=== PATIENT | male | born 1955 | race Two or more races ===

== ENCOUNTER 2019-10-09 22:31 | Emergency (ER) | payer OTHER ==
[~2019-10-09] VITALS: Ht 175.3 cm; Wt 76.7 kg
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
[2019-10-09] MEDS ORDERED: TDAP [DIPH/PERTUSSIS/TET] 0.5 ML VIAL IM ONE ×2 (23:00→23:24)
[2019-10-09 23:04] LABS: BASOPHILS % (AUTO) 0.5 % (0.0-2.0); HEMATOCRIT 42 % (39-51); HEMOGLOBIN 13.5 g/dL (13.5-17.5); LYMPHOCYTES # (AUTO) 3.5 /CMM (0.8-4.8); MEAN CORPUSCULAR HGB CONC 32 g/dl (31.0-36.0); MEAN CORPUSCULAR VOLUME 78 fL (80-96); MONOCYTES # (AUTO) 0.8 /CMM (0.1-1.30); MONOCYTES % (AUTO) 8.6 % (2.0-12.0); NEUTROPHILS # (AUTO) 4.5 /CMM (1.8-8.9); NEUTROPHILS % (AUTO) 47.9 % (43.0-81.0); PLATELET COUNT (AUTO) 394 /CMM (150-450); RED BLOOD CELL COUNT(AUTO) 5.36 MIL/uL (4.5-6.0); WHITE BLOOD COUNT (AUTO) 9.4 K/uL (4.3-11.0)
--- NOTE | 2019-10-09 23:15 | NUR ---
PT RETURNED FROM CT.
[2019-10-09 23:16] LABS: ALANINE AMINOTRANSFERASE 39 U/L (12-78); ALBUMIN 3.8 g/dL (3.4-5.0); ALCOHOL, BLOOD < 3 mg/dL (0-0); ALKALINE PHOSPHATASE 70 U/L (46-116); ASPARTATE AMINOTRANSFERASE 19 U/L (15-37); BILIRUBIN,DIRECT 0.1 mg/dL (0.0-0.2); BILIRUBIN,TOTAL 0.3 mg/dL (0.2-1.0); CALCIUM, SERUM 9.3 mg/dL (8.5-10.1); CARBON DIOXIDE 30 mmol/L (21-32); CHLORIDE 103 mmol/L (98-107); CREATININE 0.9 mg/dL (0.6-1.3); GLUCOSE 167 mg/dL (74-106); POTASSIUM 3.5 mmol/L (3.5-5.1); SODIUM SERUM 142 mmol/L (136-145); TOTAL PROTEIN, SERUM 7.6 g/dL (6.4-8.2); UREA NITROGEN, BLOOD 16 mg/dL (7-18)
[2019-10-09 23:25] LABS: SERUM AMMONIA 0 umol/L (11-32)
--- NOTE | 2019-10-09 23:50 | NUR ---
PT LEFT FOR CTA VIA GURNEY
[2019-10-09] MEDS ORDERED: LEVO25TA7 PO (23:57)
[2019-10-09] MEDS ORDERED: LOSA100T31 PO (23:57)
[2019-10-09] MEDS ORDERED: EMPA25TA PO (23:57)
[2019-10-09] MEDS ORDERED: ATOR20TA PO (23:57)
[2019-10-09] MEDS ORDERED: ALOG25TA2 PO (23:57)
[2019-10-09] MEDS ORDERED: METF-442 PO (23:57)
[2019-10-09] MEDS ORDERED: GLIM4TAB37 PO (23:57)
[2019-10-10] MEDS ORDERED: ONDANSETRON HCL/PF 4 MG/2 ML VIAL ONE (00:06)
[2019-10-10] MEDS ORDERED: FENTANYL PF 100MCG/2ML AMPUL ONE (00:06)
--- NOTE | 2019-10-10 00:11 | NUR ---
PT RETURNED FROM CTA AND VOMITTED S/P CTA. PT RETURNED TO ER 7. PT WAS PLACED ON THE MONITOR AND CONTINUOUS PULSE OX. DR PINEDO NOTIFIED RE: EMESIS. NEW ORDERS GIVEN.
--- NOTE | 2019-10-10 00:15 | NUR ---
PT REC'D ALL MEDICATION ORDERED.
[2019-10-10] MEDS ORDERED: FENTANYL PF 100MCG/2ML AMPUL IV ONE (00:30)
[2019-10-10] MEDS ORDERED: ONDANSETRON HCL/PF 4 MG/2 ML VIAL IV ONE (00:30)
[2019-10-10 00:39] LABS: APPEARANCE,URINE Clear (CLEAR); BILIRUBIN,URINE Negative (NEGATIVE); BLOOD, URINE Negative Ery/uL (NEGATIVE); COLOR,URINE Yellow (YELLOW); KETONES,URINE Negative (NEGATIVE); LEUKOCYTE ESTERASE ,URINE Negative (NEGATIVE); NITRITE, URINE Negative (NEGATIVE); PH,URINE 6.5 (5.0-8.0); PROTEIN,URINE Negative (NEGATIVE); UGLUCOSE >=1000 mg/dL (NEGATIVE); UROBILINOGEN,URINE 0.2 EU/dL (0.2)
--- NOTE | 2019-10-10 00:57 | NUR ---
Patient is resting comfortably in bed with eyes closed. Easily aroused. VSS. FAMILY AT BEDSIDE. -ACUTE CHANGES AT THIS TIME.
[2019-10-10] MEDS ORDERED: MORPHINE SULFATE INJ 4 MG/ML DISP.SYRIN ONE ×2 (00:59→03:14)
[2019-10-10] MEDS ORDERED: MORPHINE SULFATE INJ 2 MG/ML DISP.SYRIN IV ONE ×2 (01:00→03:30)
--- NOTE | 2019-10-10 01:30 | NUR ---
[facility] WORKING TO FIND BED AT THIS TIME. CLINICALS AND FACE SHEET FAXED OVER PER REQUEST. AWAITING CALL BACK.
--- NOTE | 2019-10-10 01:32 | NUR ---
Patient is resting comfortably in bed with eyes closed. Easily aroused. VSS. FAMILY AT BEDSIDE
[2019-10-10 02:04] LABS: BACTERIA,URINE None seen /HPF (None Seen); RBC,URINE 0-2 /HPF (0-2); SQUAMOUS EPITHELIAL CELL,UR Few /HPF (None Seen); WBC,URINE 0-2 /HPF (0-3)
[2019-10-10 02:08] VITALS: BP 146/72
== END 2019-10-10 03:30 | disposition short-term general hospital (02) ==
LOC: ER 22:36
DX: I60.9 Nontraumatic subarachnoid hemorrhage, unspecified (principal); E11.9 Type 2 diabetes mellitus without complications; Z79.899 Other long term (current) drug therapy; Z79.84 Long term (current) use of oral hypoglycemic drugs
CPT/HCPCS: 36415; 70450; 70496; 71045; 80048; 80076; 80305; 80307; 81001; 82140; 85025; 90471; 90715; 93005; 96374; 96375; 96376; 99291; J2270 ×2; J2405; J3010; 81000-TC; G0480